=== PATIENT | female | born 1980 | race Caucasian/White ===

== ENCOUNTER 2016-12-26 13:21 | Emergency (ER) | payer OTHER ==
[2016-12-26 13:37] VITALS: BP 128/86
--- NOTE | 2016-12-26 14:28 | UC ---
Throat Pain/Nasal Rhys HPI - HPI Summary HPI Summary: 36 yo female with sinus pressure and pain x days hx NADEGE nasal congestion post nasal drip no f/c no n/v/diarrhea - History of Current Complaint Chief Complaint: UCGeneralIllness Stated Complaint: SINUS Time Seen by Provider: 12/26/16 13:49 Hx Obtained From: Patient Hx Last Menstrual Period: October 2016 Onset/Duration: Gradual Onset, Lasting Days Severity: Moderate Pain Intensity: 5 Pain Scale Used: 0-10 Numeric Cough: None Associated Signs & Symptoms: Positive: Sinus Discomfort, Nasal Discharge - Epiglottits Risk Factors Epiglottis Risk Factors: Negative - Allergies/Home Medications Allergies/Adverse Reactions: Allergies Allergy/AdvReac Type Severity Reaction Status Date / Time ? atropine Allergy Unknown Uncoded 12/26/16 13:32 Reaction Details Home Medications: Home Medications [id number]-Zpqocgbhyiubh-Lgwiwdcy [Excedrin Migraine 250-250-65 mg] 1 tab PO Q6H PRN 12/26/16 [History Confirmed 12/26/16] diPHENhydraMINE PO* [Benadryl PO 25 MG TAB*] 25 mg PO BEDTIME PRN 12/26/16 [ History Confirmed 12/26/16] PMH/Surg Hx/FS Hx/Imm Hx Previously Healthy: Yes - Surgical History Surgical History: Yes Surgery Procedure, Year, and Place: B/L inguinal hernia, pylonidal cyst; c section x 2, tonsils, MRSA lesion from face - Family History Known Family History: Positive: Hypertension Family History: no family history of cardio-vascular disorders - Social History Alcohol Use: Occasionally Substance Use Type: None Smoking Status (MU): Never Smoked Tobacco Review of Systems Constitutional: Negative Skin: Negative Eyes: Negative ENT: Nasal Discharge, Sinus Congestion, Sinus Pain/Tenderness Respiratory: Negative Cardiovascular: Negative Gastrointestinal: Negative Genitourinary: Negative Motor: Negative Neurovascular: Negative Musculoskeletal: Negative Neurological: Negative Psychological: Negative All Other Systems Reviewed And Are Negative: Yes Physical Exam Triage Information Reviewed: Yes Appearance: Well-Appearing, No Pain Distress, Well-Nourished Vital Signs: Initial Vital Signs Temp 98.2 F 12/26/16 13:33 Pulse 80 12/26/16 13:33 Resp 16 12/26/16 13:33 BP 128/86 12/26/16 13:33 Pulse Ox 100 08/15/17 13:33 Vital Signs Reviewed: Yes Eyes: Positive: Conjunctiva Clear ENT: Positive: Hearing grossly normal, Pharynx normal, Nasal congestion, Nasal drainage, TMs normal. Negative: Tonsillar exudate Neck: Positive: Supple, Nontender, No Lymphadenopathy Respiratory: Positive: Lungs clear, Normal breath sounds, No respiratory distress, No accessory muscle use Cardiovascular: Positive: RRR, No Murmur Musculoskeletal: Positive: ROM Intact, No Edema Neurological: Positive: Alert Skin Exam: Normal Throat Pain/Nasal Course/Dx - Differential Dx/Diagnosis Provider Diagnoses: acute sinusitis Discharge - Discharge Plan Condition: Stable Disposition: HOME Prescriptions: Amoxicillin PO (*) [Amoxicillin 875 MG (*)] 875 mg PO BID #20 tab Patient Education Materials: Sinusitis (ED) Referrals: Duran Torres MD [Primary Care Provider] - If Needed Additional Instructions: warm facial compresses saline nasal spray twice daily
== END 2016-12-26 14:29 | disposition home or self-care (01) ==
LOC: UCCORT 13:21
DX: J01.90 Acute sinusitis, unspecified (principal); Z79.82 Long term (current) use of aspirin
CPT/HCPCS: 99212; G0463

== ENCOUNTER 2019-02-20 19:59 | Emergency (ER) | payer BC ==
--- OUTSIDE RECORDS SUMMARY | 2019-02-20 20:47 | XMS REPORT | Continuity of Care Document ---
:1980 External Reference #:[id number] Author Name ANGELINA Sue (transmitted by agent of provider Trenton Cadena) Address [address] [place] [address] Care Team Providers Name Role Phone Rebecca Haddad PA - Physician Pinball Machine Repairer Care Team Information Dental Cream Maker [phone] Jonathan Leung MD - Obstetrics & Care Team Information Dental Cream Maker [phone] Gynecology Maureen Camarillo MD - Neurology Care Team Information Dental Cream Maker Problems Active Problems Provider Date Refractory migraine Maureen Camarillo M.D. Onset: 10/19/2015 Note: intermittent on 02/27/17 Spasmodic torticollis Maureen Camarillo M.D. Onset: 10/19/2015 Migraine Onset: 05/24/2012 Headache Onset: 05/24/2012 Onychomycosis Onset: 03/30/2011 Heart murmur Onset: 03/30/2011 Erythematous condition Onset: 03/30/2011 Social History Type Date Description Comments Sex Unknown ETOH Use Consumes 1 glass of wine per week Recreational Drug Use Denies Drug Use Tobacco Use Start: Unknown Patient has never smoked Smoking Status Reviewed: 06/13/18 Patient has never smoked Allergies, Adverse Reactions, Alerts Active Allergies Reaction Severity Comments Date ? Eye Drop 02/03/2014 Medications Active Medications SIG Qnty Indications Ordering Provider Date Fluconazole 1 by mouth every 1tabs N76.0 Duran 02/13/2019 150mg Tablets day MD Brian Ketorolac Tromethamine take 1 by mouth 5tabs Maureen Camarillo, 07/24/2017 every 8 hours as M.D. 10mg Tablets needed for migraine. take with food. Excedrin Migraine as needed Unknown [id number] Tablets Immunizations CPT Code Status Date Vaccine Lot # [id number] Given 04/30/2012 Influenza Virus 3Yrs & Over 55808 Given 10/27/1993 Hep B Pediatric/Adolescent 78678 Given 01/14/1993 Hep B Pediatric/Adolescent 70234 Given 12/20/1992 Hep B Pediatric/Adolescent 08756 Given 11/09/1989 Measles Mumps And Rubella MMR 45044 Given 01/06/1985 Hib PRP-T Conjugate 4 Dose Schedule 09771 Given 08/28/1984 Poliovirus Vaccine OPV Live Oral Use 01495 Given 08/28/1984 DTP Vaccine 97987 Given 10/03/1982 Poliovirus Vaccine OPV Live Oral Use 06249 Given 04/26/1982 DTP Vaccine 94008 Given 07/19/1981 Poliovirus Vaccine OPV Live Oral Use 39138 Given 1980 Poliovirus Vaccine OPV Live Oral Use 30167 Given 1980 Poliovirus Vaccine OPV Live Oral Use 09987 Given 1980 DTP Vaccine 14117 Given 1980 DTP Vaccine 42967 Given 1980 DTP Vaccine 79021 Given Unknown DTP Vaccine Vital Signs Date Vital Result Comment 02/13/2019 3:17pm Weight 151.19 lb BP Systolic Sitting 120 mmHg BP Diastolic Sitting 50 mmHg 06/13/2018 9:34am Weight 151.00 lb BP Systolic Sitting 120 mmHg BP Diastolic Sitting 50 mmHg Results Description No Information Available Procedures Description No Information Available Medical Devices Description No Information Available Encounters Description No Information Available Assessments Date Code Description Provider 02/13/2019 R30.0 Dysuria ANGELINA Sue 02/13/2019 N76.0 Acute vaginitis ANGELINA Sue 02/13/2019 J06.9 Acute upper respiratory infection, unspecified ANGELINA Sue Plan of Treatment 02/13/2019 - Rebecca Haddad PAR30.0 DysuriaNew Labs:Ua Routine, Ordered: Urine Culture And Sensitivities, Ordered: 02/13/19N76.0 Acute vaginitisNew Medication:Fluconazole 150 mg - 1 by mouth every dayJ06.9 Acute upper respiratory infection, unspecified Functional Status Description No Information Available Mental Status Description No Information Available Referrals Description No Information Available
[2019-02-20 20:56] VITALS: BP 138/94
--- NOTE | 2019-02-20 21:09 | UC ---
Complaint Female HPI - HPI Summary HPI Summary: Per employment interviewer: "Saw PCP last - had u/a, urine culture and pelvic exam done; dx yeast infection and rx diflucan x1 tab. Urine culture came back negative. States she still has bladder pressure x2 weeks now, but today noticed low back pain and lower abd pain. No measured fever. Nothing taken otc. " -pain has been present the whole time but is moving from midline to the right and left lower abdomen as well now. no n/v. appetite is nml. she ate nml dinner tonight. no dysuria. no f/c. no urinary freq or pressure. no d/v. does get constipated normally going every other day. no change in that. no blood or melena. period is a little late, but had vasectomy so she knows that isnt issue. has had 2 c sections and a hernia repair at age 2, not quite sure where. -denies h./o uterin fibroids and ovarian cysts and endometrisis. Had cervical HPV procedure after of child. still has appendix. hasnt localized to RLW. pain is 5-6/10 but has a pretty high pain tolerance. no blood. no personal or Fhyx kidney stones. no hematuria. - History Of Current Complaint Stated Complaint: URINARY Time Seen by Provider: 02/20/19 20:47 Hx Last Menstrual Period: 5 weeks ago; hx irregular menses Pain Intensity: 5 - Allergies/Home Medications Allergies/Adverse Reactions: Allergies Allergy/AdvReac Type Severity Reaction Status Date / Time atropine Allergy Unknown Verified 02/20/19 20:48 Reaction Details PMH/Surg Hx/FS Hx/Imm Hx Previously Healthy: Yes - Surgical History Surgical History: Yes Surgery Procedure, Year, and Place: B/L inguinal hernia, pylonidal cyst; c section x 2, tonsils, MRSA lesion from face - Family History Known Family History: Positive: Hypertension Family History: no family history of cardio-vascular disorders. no FHx kidney stones - Social History Alcohol Use: Rare Substance Use Type: None Smoking Status (MU): Never Smoked Tobacco Review of Systems All Other Systems Reviewed And Are Negative: Yes Constitutional: Positive: Negative Skin: Positive: Negative Eyes: Positive: Negative ENT: Positive: Negative Respiratory: Positive: Negative. Negative: Shortness Of Breath, Cough Cardiovascular: Positive: Negative. Negative: Palpitations, Chest Pain Gastrointestinal: Positive: Abdominal Pain. Negative: Vomiting, Diarrhea, Nausea Genitourinary: Positive: Negative, Other - denies STD risk. Negative: Dysuria, Hematuria, Frequency, Urgency, Vaginal/Penile Discharge Motor: Positive: Negative Neurovascular: Positive: Negative Musculoskeletal: Positive: Negative Neurological: Positive: Negative Psychological: Positive: Negative Is Patient Immunocompromised?: No Physical Exam Triage Information Reviewed: Yes Appearance: Well-Appearing, No Pain Distress, Well-Nourished Vital Signs: Initial Vital Signs Temp 98 F 02/20/19 20:48 Pulse 84 02/20/19 20:48 Resp 16 02/20/19 20:48 BP 138/94 02/20/19 20:48 Pulse Ox 100 02/20/19 20:48 Vital Signs Reviewed: Yes Eye Exam: Normal Eyes: Positive: Conjunctiva Clear ENT Exam: Normal ENT: Positive: Pharynx normal, TMs normal Neck exam: Normal Neck: Positive: Supple, Nontender, No Lymphadenopathy Respiratory Exam: Normal Respiratory: Positive: Lungs clear, Normal breath sounds, No respiratory distress, No accessory muscle use. Negative: Crackles, Rhonchi, Stridor, Wheezing Cardiovascular Exam: Normal Cardiovascular: Positive: RRR, No Murmur, Pulses Normal Abdomen Description: Positive: Other: - mild LLQ, suprapubic/jt-umbilical and RLQ pain w/ deep palpation. no rebound/guarding. scar well healed. no hernias palpated. Negative: No Organomegaly, Bruit, CVA Tenderness (R), CVA Tenderness (L), Distended, Guarding, Hernia @, Hepatomegaly, McBurney's Point Tenderness, Peritoneal Signs, Pulsatile Mass, Splenomegaly Bowel Sounds: Positive: Present - X4. Musculoskeletal Exam: Normal Neurological Exam: Normal Psychological Exam: Normal Skin Exam: Normal Skin: Negative: Rashes Complaint Female Dx - Course Course Of Treatment: BP elevated b/c discomfort -I am uncertain what the dx is as the differential is wide. more tetsing is necessary to evaluate further. UA is nml. she doesnt have UTI sx. appetite is nml. tends to be constipated going QOD. but no changes. no blood. -recommend CT A/P and can consider gouing to [facility] to have done as well as labs. You stated that you are seeinga new PCP next week but we talked about that being too long to wait. - Differential Dx/Diagnosis Differential Diagnosis/HQI/PQRI: Appendicitis, Endometriosis, Ovarian Cyst, Renal Colic, Ureteral Stone Provider Diagnosis: Abdominal pain Discharge ED - Sign-Out/Discharge Documenting (check all that apply): Patient Departure All imaging exams completed and their final reports reviewed: No Studies - Discharge Plan Condition: Stable Disposition: HOME Patient Education Materials: Abdominal Pain (ED) Referrals: Duran Torres MD [Primary Care Provider] - Additional Instructions: We talked about a wide range of problems that can be causing your symptoms including NURSE EXECUTIVE/ovarian/endometrial/bladder/hernia/constipation and less likely infectious such as diverticulitis, kidney stones or appendix. We talked about the utility of going to the ER to have labs done and a CT abd/pelvis and possibly and ultrasound. I highly recommend you go to the ER with worening pain or if not improved before being evaluated by your PCP and NURSE EXECUTIVE. Please call NURSE EXECUTIVE in AM for evaluation as well, hopefully tomorrow. - Billing Disposition and Condition Condition: STABLE Disposition: Home
== END 2019-02-20 21:49 | disposition home or self-care (01) ==
LOC: UCCORT 19:59
DX: R10.30 Lower abdominal pain, unspecified (principal); M54.5 Low back pain; K59.00 Constipation, unspecified; Z88.8 Allergy status to other drugs, medicaments and biological substances
CPT/HCPCS: 81003; 99211; G0463